=== PATIENT | female | born 1960 | race Hispanic/Latino ===

== ENCOUNTER 2017-01-20 13:08 | Outpatient (CLI) | payer BC ==
--- NOTE | 2017-01-21 15:08 | Magnetic Resonance Report ---
BILATERAL BREAST MRI WITHOUT AND WITH CONTRAST: 01/20/17 13:08:00 CLINICAL: Breast cancer survivor status post left partial mastectomy, radiation and chemotherapy in [id number]. 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 COMPARISON:08/24/15. TECHNIQUE: Axial 1.0-mm T1 without, axial high resolution 2.0-mm T2 and axial 1.0-mm dynamic Vibrant high-resolution postcontrast T1 fat saturation sequences on a 1.5 Ame magnet. The examination was performed with an 8 channel dedicated [place] breast coil. Post processing with CAD and subtraction was performed on an [employer] workstation. 17.0 cc of Multihance was injected without incident for the contrast portion of the exam. Consent was obtained prior to the administration of the contrast. FINDINGS: Right: Minimal background parenchymal enhancement. No mass or suspicious enhancement of the right breast. No suspicious right axillary or right internal mammary lymph nodes. Left: Minimal background parenchymal enhancement. The left breast is smaller than the right. Stable nonenhancing upper and inner postsurgical scar. A new oval enhancing mass at 12 o'clock 0.2 cm from the nipple measures 1.4 x 1.1 x 0.9 cm. It demonstrates heterogeneous enhancement with mixed kinetics, 170% peak enhancement and 34% type III washout. No other mass or suspicious enhancement of the left breast. No suspicious left axillary or left internal mammary lymph nodes. IMPRESSION: 1. A new 1.4 cm left breast mass which is highly suspicious for recurrent breast cancer. Recommend targeted left breast ultrasound and ultrasound guided left needle breast biopsy. 2. No suspicious lymph nodes. 3. Negative right breast. RIGHT BI-RADS 1 -- Negative LEFT BI-RADS 5 - - Highly Suggestive of Malignancy
== END 2017-01-20 13:09 | disposition home or self-care (01) ==
LOC: SPVIMAG 13:08
PROVIDERS: ATTEND Surgery
DX: N63 Unspecified lump in breast (principal); Z85.3 Personal history of malignant neoplasm of breast; Z90.12 Acquired absence of left breast and nipple
CPT/HCPCS: 0159T; A9577; C8908; 77059

== ENCOUNTER 2017-01-23 16:00 | Outpatient (CLI) | payer BC | END 2017-01-23 16:01 | disposition home or self-care (01) | LOC: LABHHL 16:00 | PROVIDERS: ATTEND Surgery | DX: C50.912 Malignant neoplasm of unspecified site of left female breast (principal) | CPT/HCPCS: 88305; 88361 ==

== ENCOUNTER 2017-02-18 09:17 | Observation (INO) | payer BC ==
--- NOTE | 2017-02-11 10:46 | Anesthesia Consultation ---
Anesthesia Consult and Med Hx Date of service: 02/18/17 - Airway Anesthetic Teeth Evaluation: Good ROM Head & Neck: Adequate Mental/Hyoid Distance: Adequate Mallampati Class: Class III Intubation Access Assessment: Possibly Difficult - Pulmonary Exam CTA: Yes - Cardiac Exam Cardiac Exam: RRR Anesthetic Concerns: SENSITIVE TO NARCOTICS - Pre-Operative Health Status ASA Pre-Surgery Classification: ASA3 Proposed Anesthetic Plan: General Nerve Block: PEC - Pulmonary Hx Smoking: No - Cardiovascular System Hx Hypertension: Yes - Central Nervous System Hx Neuromuscular Disorder: Yes (Fibromyalgia) Hx Psychiatric Problems: Yes (Anxiety/Depression) - Other Systems Hx Cancer: Yes
[2017-02-18] MEDS ORDERED: NACL BACTERIOSTATIC INFILTRATI ONE (10:27)
[2017-02-18] MEDS ORDERED: GARAMYCIN ONE ×2 (10:30→13:00)
[2017-02-18] MEDS ORDERED: ANCEF ONE (10:30)
[2017-02-18] MEDS ORDERED: NACL 0.9% 1000 ML 2,000 ML ONE (10:30)
[2017-02-18] MEDS ORDERED: BACITRACIN ONE ×2 (10:31→13:01)
[2017-02-18] MEDS ORDERED: MARCAINE-EPI/PF 0.5%-1:200,000 INFILTRATI ONE (10:53)
[2017-02-18] MEDS ORDERED: DECADRON ONE (10:53)
[2017-02-18] MEDS ORDERED: SUBLIMAZE IV NR (11:00)
[2017-02-18] MEDS ORDERED: NACL 0.9% 1000 ML 1,000 ML IV SCH (11:00)
[2017-02-18] MEDS ORDERED: VERSED IV NR (11:00)
[2017-02-18] MEDS ORDERED: NEURONTIN PO NR (11:00)
[2017-02-18] MEDS ORDERED: PEPCID PO NR (11:00)
[2017-02-18] MEDS ORDERED: SUBLIMAZE ONE (11:28)
[2017-02-18] MEDS ORDERED: DIPRIVAN 10 MG/ML IV ONE (11:29)
[2017-02-18] MEDS ORDERED: NACL P/F VIAL (10 ML) 10 ML ONE (11:52)
[2017-02-18] MEDS ORDERED: METHYLENE BLUE ONE (11:52)
[2017-02-18] MEDS ORDERED: VANCOMYCIN/NS 1 GM/250 ML 1 GM/250 ML BAG IV NR (12:00)
[2017-02-18] MEDS ORDERED: QUELICIN ONE (12:38)
[2017-02-18] MEDS ORDERED: XYLOCAINE MPF 2% ONE (12:38)
[2017-02-18] MEDS ORDERED: ZEMURON IV ONE (12:38)
[2017-02-18] MEDS ORDERED: NACL 0.9% 100 ML ONE (12:38)
[2017-02-18] MEDS ORDERED: NEO SYNEPHRINE ONE (12:38)
[2017-02-18] MEDS ORDERED: ePHEDrine SULFATE ONE (12:44)
[2017-02-18] MEDS ORDERED: WATER FOR IRRIG STERILE IR ONE (13:50)
[2017-02-18] MEDS ORDERED: BACITRACIN IR ONE (13:51)
[2017-02-18] MEDS ORDERED: NACL 0.9% IR ONE (13:52)
[2017-02-18] MEDS ORDERED: METHYLENE BLUE IV ONE (13:55)
[2017-02-18] MEDS ORDERED: NACL P/F VIAL (10 ML) IV ONE (14:00)
--- NOTE | 2017-02-18 14:43 | Short Stay Summary ---
Short Stay Documentation Date of service: 02/18/17 - History H&P: obtained from office - Allergies and Medications Current Medications: Allergies adhesive tape Allergy (Verified 02/11/17 11:33) Hives blisters Penicillins Allergy (Verified 02/18/17 12:57) Rash codeine Adverse Reaction (Verified 02/11/17 11:33) Vomiting Home Medications Medication Instructions Recorded Confirmed Last Taken Type ALPRAZolam [Alprazolam] 0.5 mg PO PRN 02/18/17 02/18/17 02/18/17 07:00 History Gabapentin [Gabapentin] 300 mg PO DAILY 02/18/17 02/18/17 02/17/17 21:00 History Lisinopril [Lisinopril] 10 mg PO DAILY 02/18/17 02/18/17 02/17/17 21:00 History Nortriptyline HCl [Nortriptyline 75 mg PO DAILY 02/18/17 02/18/17 02/17/17 21: 00 History HCl] RX: buPROPion XL [Wellbutrin XL] 300 mg PO DAILY 02/18/17 02/18/17 02/18/17 07: 00 History Active Medications Celecoxib (Celebrex) 200 mg PO PREOP NR Stop: 02/18/17 15:00 Last Admin: 02/18/17 10:51 Dose: 200 mg Famotidine (Pepcid) 20 mg PO PREOP NR Stop: 02/18/17 15:00 Last Admin: 02/18/17 10:51 Dose: 20 mg Fentanyl (Sublimaze) 100 mcg IV ONCE NR Stop: 02/18/17 15:00 Last Admin: 02/18/17 11:08 Dose: 100 mcg Gabapentin (Neurontin) 300 mg PO PREOP NR Stop: 02/18/17 15:00 Last Admin: 02/18/17 10:51 Dose: 300 mg Sodium Chloride (Nacl 0.9% 1000 Ml) 1,000 mls @ 100 mls/hr IV DIRECT FABY Last Admin: 02/18/17 10:50 Dose: 100 mls/hr Midazolam HCl (Versed) 2 mg IV PREOP NR Stop: 02/18/17 23:59 Last Admin: 02/18/17 11:08 Dose: 2 mg - Brief post op/procedure progress note Date of procedure: 10/18/17 Pre-op diagnosis: Left breast cancer of the upper outer quadrant Post-op diagnosis: same Procedure: Right total mastectomy and left total mastectomy with SLNB Anesthesia: GETA Findings: Bilateral total mastectomy and left SLNB Surgeon: ANGELO ALBERTO Estimated blood loss: minimal Pathology: list (bilateral total mastectomy and left SLNB) Specimen disposition: to lab Condition: stable - Disposition Condition at discharge: Good Disposition: DC/TX- SHRT-TRM GEN HOSP IP Short Stay Discharge Plan Activity: other (no heavy lifting) Diet: regular Wound: other (keep incision clean and dry and may shower in 48 hours; no baths, pools or lakes; do not rub or scrub incision) Follow up with: TAL POTTS MD [Primary Care Provider] - 7 Days ANGELO ALBERTO MD [Staff Physician] - 7 Days
[2017-02-18] MEDS ORDERED: SODIUM CHLORIDE FLUSH SYRINGE 10 ML IV PRN (14:58)
[2017-02-18] MEDS ORDERED: REGLAN PO PRN (14:58)
[2017-02-18] MEDS ORDERED: DILAUDID PO PRN (14:58)
[2017-02-18] MEDS ORDERED: TYLENOL PO PRN (14:58)
[2017-02-18] MEDS ORDERED: BENADRYL PO PRN (14:58)
--- NOTE | 2017-02-18 14:58 | Operative Report ---
Operative Report Operative Report: Date of service: 02/18/2017 Preoperative diagnosis: Left breast cancer of the upper outer quadrant Postoperative diagnosis: Same Procedure: Right total mastectomy and left total mastectomy with sentinel lymph node biopsy Surgeon: Elisabeth Peraza M.D. Asst.: Brianna Vaughn MD Anesthesia: Gen. Findings: Left breast biopsy clip present within left total mastectomy. 1 sentinel lymph node identified and negative for malignancy on frozen section of pathology Complications: None Drains: per Dr. Alejandro Estimated blood loss: Minimal Disposition: Dr. Alejandro continued with bilateral tissue mixed crop and livestock farmer placement Indications for operative procedure: This is a 56-year-old postmenopausal lady with stage I left breast cancer of the upper outer quadrant, left breast mass at the 1:00 position 3 cm from the nipple, IDCA [id number] triple negative. Recommendations were to proceed with left total mastectomy given personal history of left breast cancer in 2006 and pesonal history of PALB2 gene mutation, recommendations were to proceed with right total prophylactic mastectomy given positive PALB2 gene mutation. Patient wished to proceed with the above procedure and immediate tissue mixed crop and livestock farmer placment [facility] plastic reconstructive surgery. Procedure in detail: Anesthesia placed a bilateral pectoral muscle block prior to going to the operating room. The patient was taken to the operating room and was placed supine. Gen. anesthesia was administered. The left nipple was injected with radioisotope and 1 mL of methylene blue dye mixed with 1 mL of saline. Bilateral breast were prepped and draped in the normal postoperative fashion. Timeout was performed. Typical mastectomy incision markings were made with left mastectomy marking to include known breast cancer at the 1:00 position 3 cm from the nipple. Attention was taken towards the right breast first. A skin incision was made with a 10 blade knife and dissection taken down to the subcutaneous tissues. First began raising of the superior flap to the level of the clavicle superiorly and posteriorly to the pectoralis muscle. Followed by raising of the medial flap to the level of the sternum and posteriorly to the pectoralis muscle. Followed by raising of the lateral flap to the level of the latissimus dorsi muscle and taken down posteriorly. Followed by raising of the inferior flap to the level of the inframammary fold taken posterior to the pectoralis muscle. The mastectomy/breast was removed from the pectoralis muscle without incident. The specimen was appropriately marked and sent to pathology. Hemostasis was obtained with the bovie cautery. Attention was taken towards the left breast first. A skin incision was made with a 10 blade knife and dissection taken down to the subcutaneous tissues. First began raising of the superior flap to the level of the clavicle superiorly and posteriorly to the pectoralis muscle. Followed by raising of the medial flap to the level of the sternum and posteriorly to the pectoralis muscle. Followed by raising of the lateral flap to the level of the latissimus dorsi muscle and taken down posteriorly. The gamma probe was inserted into the axilla and 1 sentinel lymph nodes was identified, no isotope count was noted but blue dye was present. Lymph node was sent to pathology with findings negative for malignancy noted on frozen section. Then proceeded with raising of the inferior flap to the level of the inframammary fold taken posterior to the pectoralis muscle. The mastectomy/breast was removed from the pectoralis muscle without incident. The specimen was appropriately marked and sent to radiology with findings of 1 breast biopsy clip present and sent to pathology. Hemostasis was obtained with the bovie cautery. Dr. Alejandro then proceeded with bilateral tissue mixed crop and livestock farmer placement.
[2017-02-18] MEDS ORDERED: NARCAN 0.4 MG/1 ML IV PRN (15:00)
[2017-02-18] MEDS ORDERED: LACTATED RINGERS 1,000 ML IV SCH (15:00)
[2017-02-18] MEDS ORDERED: MORPHINE PCA 30MG/30ML IV SCH (15:00)
[2017-02-18] MEDS ORDERED: DILAUDID IV PRN (17:12)
[2017-02-18] MEDS ORDERED: DILAUDID ONE (17:23)
--- NOTE | 2017-02-18 17:54 | Post Anesthesia Evaluation ---
- Post Anesthesia Evaluation Patient Participated: Yes Airway Patent: Yes Stable Respiratory Function: Yes Nausea/Vomiting: No Temp > 96.8F: Yes Pain Manageable: Yes Adequeate Hydration: Yes Anesthesia Complications: No Block Receding Appropriately: Not Applicable Patient on Ventilator: No
--- NOTE | 2017-02-18 18:37 | Operative Report ---
DATE OF SERVICE: 02/18/2017 PREOPERATIVE DIAGNOSES: 1. Personal history of breast cancer. 2. Acquired bilateral breast deformity. POSTOPERATIVE DIAGNOSES: 1. Personal history of breast cancer. 2. Acquired bilateral breast deformity. PROCEDURE: 1. Immediate breast reconstruction with [place] 500 mL Implants filled to 180 mL bilaterally. 2. Placement of acellular dermal matrix (FlexHD 11 x 20 x 1.2 cm). SURGEON: Gerardo Alejandro MD BOLT THREADER: JOELLE Aquino ANESTHESIA: General endotracheal tube anesthesia. DRAINS: ADAM x 4. SPECIMENS: None. COMPLICATIONS: None. ESTIMATED BLOOD LOSS: Less than 10 mL INDICATIONS: The patient is a 56-year-old female who presents with a recurrent left-sided breast cancer and has opted to go forward with a bilateral immediate breast reconstruction with tissue certified registered dental assistant technique and acellular dermal matrix. Other options were discussed. We discussed the nature and technical aspects of the surgery. Potential risks including, but not limited to postop bleeding, infection, pronounced scar, hematoma or seroma formation, areas of paresthesias or numbness, delayed healing, or wound dehiscence, capsular contracture, implant leak, rupture, failure, need for revision or future surgery or removal of the implants. She understands the staged nature of breast reconstructive surgery and the necessity for a second stage where there would be certified registered dental assistant exchange for a permanent implant. Subsequent adjunctive procedures may also be indicated. DESCRIPTION OF PROCEDURE: The patient was already anesthetized, prepped and draped. Dr. Peraza completed bilateral mastectomy. I evaluated the skin flaps in each side, which appeared pink, healthy and viable with good capillary refill in each side and of adequate thickness. On each side was treated in identical manner. The inferior border of the pectoralis major muscle was divided under direct vision with electrocautery and a subpectoral pocket was developed. Hemostasis was meticulously achieved with electrocautery. The pockets were irrigated with copious amounts of saline solution containing gentamicin and bacitracin. Ancef was withheld due to her penicillin allergy. Two 11 x 20 x 1.2 cm thickness FlexHD acellular dermal matrix mixed material were vigorously rinsed in antibiotic solution and then placed along the inferior pole of each breast. The inferior border of the material was sewn with interrupted 0 PDS to the chest wall. The superior border was sewn to the inferior border of the pectoralis major muscle with interrupted 0 Vicryl suture. A deep 10-Icelandic flat drain was placed into the deep pocket and a 7-[place]celandic flat ADAM drain was placed superficial to the ADM. Tabs were sewn in place to the chest wall with interrupted 0 Vicryl. The closure was then facilitated with a running 2-0 Vicryl suture at the level of subcutaneous tissue, then, interrupted 3-0 Monocryl at the level of the deep dermis and then a running 4-0 Monocryl suture in a subcuticular manner and then DermaFlex skin glue. The drains were sewn in place with 2-0 silk suture. Each tissue certified registered dental assistant was filled via closed sterile technique with 180 mL of sterile saline solution. There was a small mottled area involving the central aspect of the left reconstructed breast between the 2 superior past surgical scars and the new mastectomy incision. There is good capillary refill; however, in this skin is likely to rebound; however, we will monitor it closely. She tolerated the procedure well and was placed in an abdominal binder. She was extubated and transferred to the recovery area in stable condition. JOB# [id number] /ЕКАТЕРИНА
[2017-02-18] MEDS ORDERED: ISOPTO TEARS 0.5% OU PRN (20:17)
[2017-02-19] MEDS: ZOFRAN IV PRN ×2 (04:50→13:27)
--- NOTE | 2017-02-19 06:29 | Progress Note ---
Assessment and Plan This is a 56 year old lady with left breast cancer of the upper outer quadrant POD#1 bilateral total mastectomies and left SLNB and bilateral tissue packer and carry out placement. 1. Patient's pain well controlled. Will wean off SUPPLY AIDE and transition to po pain meds. 2. Bilateral chest incisions healing well. 3. OOB to hallway. 4. ADAM drain education. 5. Possible d/c later today if pain in good control on po pain meds. - Patient Problems (1) Breast cancer Current Visit: Yes Status: Acute Qualifiers: Breast location: upper outer quadrant of breast Estrogen receptor status: negative Patient sex: female Laterality: left Qualified Code(s): C50.412 - Malignant neoplasm of upper-outer quadrant of left female breast; Z17.1 - Estrogen receptor negative status [ER-]; Z17.1 - Estrogen receptor negative status [ER-] Plan to address problem: surgery (2) Breast cancer genetic susceptibility Current Visit: Yes Status: Acute Plan to address problem: bilateral mastectomy (3) Hypertension Current Visit: Yes Status: Acute Qualifiers: Hypertension type: essential hypertension Qualified Code(s): I10 - Essential (primary) hypertension Plan to address problem: cont with home meds Subjective Date of service: 02/19/17 Principal diagnosis: Left breast cancer of the upper outer quadrant Interval history: POD#1 bilateral mastectomies and left SLNB and immediate tissue packer and carry out placement bilateral Objective - Constitutional Vitals: Vital Signs - 12hr 02/18/17 02/19/17 02/19/17 19:30 00:00 01:57 Temperature 98.6 F 98.6 F Pulse Rate 77 66 Respiratory 16 16 18 Rate Blood Pressure 102/62 111/69 [Right] 02/19/17 02/19/17 04:10 04:15 Temperature 98.8 F Pulse Rate 66 Respiratory 16 18 Rate Blood Pressure 113/67 [Right] General appearance: Present: no acute distress - EENT Eyes: PERRL, EOM intact ENT: hearing intact, clear oral mucosa Ears: bilateral: normal - Neck Neck: supple, normal ROM - Respiratory Respiratory effort: normal Respiratory: bilateral: CTA - Breasts Breasts: other (bilateral chest incisions clean, dry and intact; skin well perfused; ADAM drains to bulb suction) - Cardiovascular Rhythm: regular Extremities: no ischemia, pulses intact, pulses symmetrical, No edema, normal temperature, normal color, Full ROM - Gastrointestinal General gastrointestinal: Present: soft, non-tender, non-distended Rectal Exam: deferred - Genitourinary Female genitourinary: deferred - Integumentary Integumentary: clear, warm, dry - Musculoskeletal Musculoskeletal: strength equal bilaterally - Neurologic Neurologic: CNII-XII intact, focal deficits, moves all extremities - Psychiatric Psychiatric: appropriate mood/affect, memory intact, cooperative
--- NOTE | 2017-02-19 08:19 | Mammography Report ---
SPECIMEN RADIOGRAPH LEFT BREAST: 02/18/17 09:17:00 CLINICAL: Mastectomy specimen FINDINGS: An irregular mass with a biopsy clip is identified within the specimen.
[2017-02-19] MEDS ORDERED: MORPHINE IV PRN (09:30)
[2017-02-19] MEDS ORDERED: NACL 0.9% 1000 ML 1,000 ML IV SCH (10:30)
[2017-02-19] MEDS ORDERED: NACL 0.9% 250ML 250 ML IV ONE (13:09)
[2017-02-19 17:29] VITALS: BP 80/46
== END 2017-02-19 18:15 | disposition home or self-care (01) ==
LOC: OR 09:17 → OB 14:58
PROVIDERS: ADMIT Surgery; ATTEND Surgery
DX: C50.412 Malignant neoplasm of upper-outer quadrant of left female breast (principal); I10 Essential (primary) hypertension; Z17.1 Estrogen receptor negative status [ER-]; Z15.01 Genetic susceptibility to malignant neoplasm of breast; N64.89 Other specified disorders of breast
CPT/HCPCS: 19303; 19340; 64450; 76098; 88307; 88309; 88331; 88333; 88342; 88361; 96374; 96375; 96376; C1789; G0378; J0330; J1100; J1170; J1580; J2250; J2270; J2370; J2405; J2704; J3010; J3370; J7030; J7120; Q4128; Q9968; J0690